=== PATIENT | male | born 1975 | race Caucasian/White ===

== ENCOUNTER 2021-08-12 17:34 | Emergency (ER) | payer MEDICAID, SELFPAY ==
[~2021-08-12] VITALS: Ht 182.9 cm; Wt 83.9 kg
[2021-08-12 17:59] VITALS: BP_SYST 162
--- NOTE | 2021-08-12 19:22 | NUR ---
Patient to ER bed H2 to gown for evaluation. Side rails up.
--- NOTE | 2021-08-12 19:25 | NUR ---
MD Warren w/ patient at bedside.
[2021-08-12 19:55] VITALS: BP_SYST 128
--- NOTE | 2021-08-12 20:00 | NUR ---
Crutches properly fitted for patient by . Patient given crutch walking instructions and demonstration. Is able to demonstrate adequate crutch walking technique with crutches provided. Patient given written and verbal discharge instructions and verbalizes understanding. ER MD discussed with patient the results and treatment provided. Patient in stable condition. ID arm band removed. Rx of given. Patient educated on pain management and to follow up with PMD. Pain Scale 3. Opportunity for questions provided and answered. Medication side effect fact sheet provided.
== END 2021-08-12 19:55 | disposition home or self-care (01) ==
LOC: SED 17:34
DX: S93.602A Unspecified sprain of left foot, initial encounter (principal); W11.XXXA Fall on and from ladder, initial encounter; Y93.89 Activity, other specified; Y92.89 Other specified places as the place of occurrence of the external cause; Y99.8 Other external cause status
CPT/HCPCS: 99284